=== PATIENT | female | born 1970 | race Two or more races ===

== ENCOUNTER 2020-04-14 08:29 | Outpatient (CLI) | payer BC | END 2020-04-14 23:59 | disposition home or self-care (01) | LOC: CFH 08:29 | PROVIDERS: ATTEND Obstetrics & Gynecology Gynecology | DX: Z12.31 Encounter for screening mammogram for malignant neoplasm of breast (principal) | CPT/HCPCS: 77063; 77067 ==

== ENCOUNTER → 2020-06-29 | Outpatient (CLI) | payer BC ==
[~2020-06-29] MED LIST: OMNIPAQUE 350 MG/ML, 100ML BOTTLE ONE
== END | disposition home or self-care (01) ==
LOC: CFH 10:49
PROVIDERS: ATTEND Nurse Practitioner Family
DX: R74.8 Abnormal levels of other serum enzymes (principal); R10.31 Right lower quadrant pain
CPT/HCPCS: 74177; Q9967